=== PATIENT | male | born 1985 | race African-American/Black ===

== ENCOUNTER 2016-11-09 02:03 | Emergency (ER) | payer SELFPAY ==
[~2016-11-09] VITALS: Ht 195.6 cm; Wt 123.5 kg
[2016-11-09 02:47] VITALS: Ht 195.6 cm; Wt 123.5 kg
== END 2016-11-09 06:34 | disposition left against medical advice (07) ==
LOC: E/R 02:03
DX: Z53.21 Procedure and treatment not carried out due to patient leaving prior to being seen by health care provider (principal)